=== PATIENT | female | born 1950 | race Two or more races ===

== ENCOUNTER 2020-11-19 11:55 | Inpatient (IN) | payer OTHER ==
[~2020-11-19] VITALS: Ht 167.6 cm; Wt 66.6 kg
[2020-11-19] MEDS ORDERED: SODIUM CHLORIDE 0.9% 1,000 ML IVB ONE (12:45)
[2020-11-19] MEDS ORDERED: ONDANSETRON HCL 4 MG/2 ML VIAL IV ONE (12:45)
[2020-11-19] MEDS ORDERED: MORPHINE SULF INJ 2 MG/ML SYRINGE 1ML IV ONE (12:45)
[2020-11-19 13:18] LABS: Hematocrit 40.6 % (36.0-46.0); Hemoglobin 13.4 g/dL (12.2-16.2); Mean Corpuscular Hemoglobin 28.4 pg (28.0-32.0); Mean Corpuscular Hgb Conc. 33.1 g/dL (32.0-36.0); Mean Corpuscular Volume 85.8 fL (80.0-100.0); Platelet Count (auto) 275 10^3/uL (140-450); Red Blood Cells 4.73 10^6/uL (4.0-5.20); Red Cell Distribution Width 15.8 % (11.8-14.3); White Blood Cell 28.6 10^3/uL (4.4-10.8)
[2020-11-19 13:35] LABS: Basophils % (manual) 0 (0.0-2.0); Blast Cells 0; Eosinophils % (manual) 0 (0-7); Metamyelocytes % 0; Monocytes % (manual) 0 (0-12); Myelocytes % 0; Promyelocytes % 0; Reactive Lymphocytes 0
[2020-11-19 13:38] LABS: Albumin 3.4 g/dL (3.4-5.0); Potassium 3.3 mmol/L (3.5-5.1)
[2020-11-19 13:39] LABS: Magnesium 1.3 mg/dL (1.6-2.6)
[2020-11-19 13:41] LABS: BUN/Creatinine Ratio 17.1; Bilirubin, Total 1.8 mg/dL (0.2-1.0); Total Protein 8.2 g/dL (6.4-8.2)
[2020-11-19] MEDS ORDERED: cefTRIAXone 1GM/50ML D5W 50 ML IV ONE (14:15)
[2020-11-19 14:31] LABS: Band Neutrophils % (manual) 7; Lymphocytes % (manual) 10 (10.0-50.0)
[2020-11-19 15:01] LABS: INR 1.1 (0.9-1.15); Partial Thromboplastin Time 31.9 sec (23.0-31.2)
[2020-11-19 15:51] LABS: Lactic Acid w/Reflex 3.1 mmol/L (0.4-2.0)
[2020-11-19] MEDS ORDERED: NITROGLYCERIN 0.4 MG SL TAB SL PRN (16:15)
[2020-11-19] MEDS ORDERED: hydrALAZINE HCL 20 MG/ML VL IV PRN (16:15)
[2020-11-19] MEDS ORDERED: MORPHINE SULF INJ 2 MG/ML SYRINGE 1ML IV PRN (16:15)
[2020-11-19] MEDS: D5W/ SOD CHL 0.9%/KCL 20MEQ 1,000 ML IV SCH (17:15)
[2020-11-19] MEDS: MAGNESIUM SULFATE 1GM/100ML 100 ML IV SCH ×2 (17:15→20:11)
[2020-11-19] MEDS ORDERED: MAGNESIUM SULFATE 1GM/100ML 100 ML IV ONE (20:11)
[2020-11-19] MEDS: PIPERACILLIN-TAZOB 3.375GM 100 ML IV SCH (20:12)
[2020-11-19] MEDS: BUDESONIDE (INHALATION) 0.5 MG/2 ML NEB NEB SCH (22:00)
[2020-11-19] MEDS: MORPHINE SULF INJ 2 MG/ML SYRINGE 1ML IV PRN (22:40)
[2020-11-19] MEDS: ONDANSETRON HCL 4 MG/2 ML VIAL IV PRN (22:40)
[2020-11-20] MEDS: PIPERACILLIN-TAZOB 3.375GM 100 ML IV SCH ×3 (00:51→09:00)
[2020-11-20] MEDS: D5W/ SOD CHL 0.9%/KCL 20MEQ 1,000 ML IV SCH ×3 (04:21→15:27)
[2020-11-20] MEDS ORDERED: ALBUMIN 5% 50 ML IV ONE (05:00)
[2020-11-20 06:20] LABS: Mean Corpuscular Hgb Conc. 33.2 g/dL (32.0-36.0)
[2020-11-20 06:23] LABS: Hematocrit 37.9 % (36.0-46.0); Hemoglobin 12.6 g/dL (12.2-16.2); Mean Corpuscular Hemoglobin 28.8 pg (28.0-32.0); Mean Corpuscular Volume 86.6 fL (80.0-100.0); Platelet Count (auto) 235 10^3/uL (140-450); Red Blood Cells 4.38 10^6/uL (4.0-5.20); Red Cell Distribution Width 15.9 % (11.8-14.3)
[2020-11-20 06:40] LABS: Basophils % (manual) 0 (0.0-2.0); Blast Cells 0; Eosinophils % (manual) 0 (0-7); Metamyelocytes % 0; Myelocytes % 0; Potassium 3.2 mmol/L (3.5-5.1); Promyelocytes % 0; Reactive Lymphocytes 0
[2020-11-20 06:52] LABS: Albumin 2.9 g/dL (3.4-5.0); BUN/Creatinine Ratio 21.2; Bilirubin, Total 2.4 mg/dL (0.2-1.0); Calcium 8.3 mg/dL (8.5-10.1); Total Protein 7.3 g/dL (6.4-8.2)
[2020-11-20] MEDS ORDERED: NOREPINEPHRINE 8 MG/250ML KIT 250 ML IV ONE (07:46)
[2020-11-20] MEDS ORDERED: SODIUM CHLORIDE 0.9% 1,000 ML IV ONE (08:15)
[2020-11-20 08:21] LABS: Band Neutrophils % (manual) 1; Lymphocytes % (manual) 4 (10.0-50.0); Monocytes % (manual) 7 (0-12)
[2020-11-20] MEDS ORDERED: LACTATED RINGER'S 1,000 ML IV ONE (09:00)
[2020-11-20] MEDS: NOREPINEPHRINE 8 MG/250ML KIT 250 ML IV SCH (09:52)
[2020-11-20] MEDS ORDERED: POTASSIUM CHLORIDE 40 MEQ, LIDOCAINE 1% (LOCAL ANESTH.) 4 ML in SODIUM CHL 0.9% 250 ML IV ONE (10:15)
[2020-11-20] MEDS ORDERED: metroNIDAZOLE 500MG/100ML 100 ML IV ONE (10:15)
[2020-11-20] MEDS: PANTOPRAZOLE 40 MG/10 ML VIAL INJ IV SCH (10:39)
[2020-11-20] MEDS: metroNIDAZOLE 500MG/100ML 100 ML IV SCH ×2 (14:00→23:11)
[2020-11-20] MEDS: MORPHINE SULF INJ 2 MG/ML SYRINGE 1ML IV PRN ×2 (15:33→18:44)
[2020-11-20 19:12] LABS: BUN/Creatinine Ratio 21.1; Calcium 7.5 mg/dL (8.5-10.1); Magnesium 1.8 mg/dL (1.6-2.6); Potassium 4.3 mmol/L (3.5-5.1)
[2020-11-20] MEDS: ACETAMINOPHEN 500 MG TAB PO PRN (22:20)
[2020-11-21] VITALS (17 sets, daily range): BP systolic 89–149; BP diastolic 44–65
[2020-11-21] MEDS: CEFEPIME 2 GM in SODIUM CHL 0.9% 50 ML IV SCH ×3 (00:25→21:55)
[2020-11-21] MEDS: MORPHINE SULF INJ 2 MG/ML SYRINGE 1ML IV PRN ×2 (02:24→09:57)
[2020-11-21] MEDS: metroNIDAZOLE 500MG/100ML 100 ML IV SCH ×3 (07:45→21:47)
[2020-11-21] MEDS: NOREPINEPHRINE 8 MG/250ML KIT 250 ML IV SCH (09:00)
[2020-11-21] MEDS: PANTOPRAZOLE 40 MG/10 ML VIAL INJ IV SCH (09:57)
[2020-11-21] MEDS: D5W/ SOD CHL 0.9%/KCL 20MEQ 1,000 ML IV SCH ×2 (10:40→19:18)
[2020-11-21] MEDS: BUDESONIDE (INHALATION) 0.5 MG/2 ML NEB NEB SCH ×3 (11:25→22:00)
[2020-11-21 11:46] LABS: Hematocrit 32.4 % (36.0-46.0); Hemoglobin 10.5 g/dL (12.2-16.2); Mean Corpuscular Hemoglobin 28.3 pg (28.0-32.0); Mean Corpuscular Hgb Conc. 32.5 g/dL (32.0-36.0); Mean Corpuscular Volume 87.3 fL (80.0-100.0); Platelet Count (auto) 226 10^3/uL (140-450); Red Blood Cells 3.71 10^6/uL (4.0-5.20)
[2020-11-21 11:56] LABS: White Blood Cell 32.3 10^3/uL (4.4-10.8)
[2020-11-21 11:57] LABS: Basophils % (manual) 0 (0.0-2.0); Blast Cells 0; Metamyelocytes % 0; Myelocytes % 0; Promyelocytes % 0; Reactive Lymphocytes 0
[2020-11-21] MEDS ORDERED: SODIUM CHLORIDE 0.9% 1,000 ML IV SCH (12:00)
[2020-11-21] MEDS ORDERED: ONDANSETRON HCL 4 MG/2 ML VIAL ONE (12:10)
[2020-11-21] MEDS ORDERED: fentaNYL CITRATE 100 MCG/2 ML VL ONE ×3 (12:10→14:06)
[2020-11-21] MEDS ORDERED: PROPOFOL 10 MG/ML 20 ML IV ONE (12:10)
[2020-11-21] MEDS ORDERED: ROCURONIUM 10MG/ML 10ML VIAL IV ONE (12:10)
[2020-11-21] MEDS ORDERED: GLYCOPYRROLATE 0.2 MG/ML 1ML VIAL ONE (12:10)
[2020-11-21] MEDS ORDERED: ETOMIDATE (2MG/ML) 20ML VIAL IV ONE (12:10)
[2020-11-21] MEDS ORDERED: SODIUM CHLORIDE LOCK 10 ML ONE (12:10)
[2020-11-21] MEDS ORDERED: MIDAZOLAM HCL 1MG/1ML-2 ML VIAL ONE (12:10)
[2020-11-21] MEDS ORDERED: NEOSTIGMINE 1 MG/ML INJ (10mg/10ML VIAL) ONE (12:10)
[2020-11-21 12:12] LABS: Calcium 8.2 mg/dL (8.5-10.1); Magnesium 1.9 mg/dL (1.6-2.6); Potassium 3.8 mmol/L (3.5-5.1)
[2020-11-21 12:19] LABS: Albumin 2.3 g/dL (3.4-5.0); Bilirubin, Total 1.4 mg/dL (0.2-1.0); Total Protein 6.6 g/dL (6.4-8.2)
[2020-11-21] MEDS ORDERED: HYDROmorphone HCL 2 MG/ML VL ONE (12:58)
[2020-11-21] MEDS ORDERED: EPINEPHrine HCL 1 MG/1 ML AMP ONE (13:14)
[2020-11-21] MEDS ORDERED: HEPARIN 1,000 UNITS/ml 1ML VIAL ONE (14:01)
[2020-11-21 14:16] LABS: Band Neutrophils % (manual) 3; Eosinophils % (manual) 4 (0-7); Lymphocytes % (manual) 4 (10.0-50.0); Monocytes % (manual) 3 (0-12)
[2020-11-21] MEDS ORDERED: BUPIVACAINE 0.5% P/F INJ 10 ML VIAL ONE (14:54)
[2020-11-21] MEDS ORDERED: MIDAZOLAM DRIP 50 mg/50mL 50 ML IV ONE (15:12)
[2020-11-21] MEDS: MIDAZOLAM DRIP 50 mg/50mL 50 ML IV SCH ×2 (15:15→22:59)
[2020-11-21] MEDS ORDERED: ONDANSETRON HCL 4 MG/2 ML VIAL IV PRN (15:45)
[2020-11-21] MEDS ORDERED: MORPHINE SULF INJ 2 MG/ML SYRINGE 1ML IV PRN (15:45)
[2020-11-21] MEDS ORDERED: HYDROmorphone HCL 2 MG/ML VL IV PRN (15:45)
[2020-11-21] MEDS ORDERED: metroNIDAZOLE 500MG/100ML 100 ML IV ONE (16:31)
[2020-11-21] MEDS: ALBUTEROL SULF 2.5 MG/0.5ML(0.5%) NEB SOLN NEB SCH ×2 (18:00→23:39)
[2020-11-21] MEDS: fentaNYL Drip 2500mCg/250mlNS 250 ML IV SCH (18:53)
[2020-11-22] VITALS (89 sets, daily range): BP systolic 73–145; BP diastolic 48–84
[2020-11-22] MEDS: D5W/ SOD CHL 0.9%/KCL 20MEQ 1,000 ML IV SCH ×2 (05:11→13:21)
[2020-11-22] MEDS: NOREPINEPHRINE 8 MG/250ML KIT 250 ML IV SCH (05:33)
[2020-11-22] MEDS: metroNIDAZOLE 500MG/100ML 100 ML IV SCH ×3 (05:33→21:44)
[2020-11-22] MEDS: ALBUTEROL SULF 2.5 MG/0.5ML(0.5%) NEB SOLN NEB SCH ×3 (06:00→18:07)
[2020-11-22 07:13] LABS: Hematocrit 30.1 % (36.0-46.0); Hemoglobin 9.8 g/dL (12.2-16.2); Mean Corpuscular Hemoglobin 28.8 pg (28.0-32.0); Mean Corpuscular Hgb Conc. 32.7 g/dL (32.0-36.0); Mean Corpuscular Volume 87.9 fL (80.0-100.0); Platelet Count (auto) 261 10^3/uL (140-450); Red Blood Cells 3.42 10^6/uL (4.0-5.20); Red Cell Distribution Width 15.5 % (11.8-14.3); White Blood Cell 25.4 10^3/uL (4.4-10.8)
[2020-11-22 07:26] LABS: Band Neutrophils % (manual) 0; Basophils % (manual) 0 (0.0-2.0); Blast Cells 0; Eosinophils % (manual) 0 (0-7); Metamyelocytes % 0; Myelocytes % 0; Promyelocytes % 0; Reactive Lymphocytes 0
[2020-11-22] MEDS: MIDAZOLAM DRIP 50 mg/50mL 50 ML IV SCH (07:49)
[2020-11-22 08:23] LABS: Lymphocytes % (manual) 5 (10.0-50.0); Monocytes % (manual) 11 (0-12)
[2020-11-22] MEDS: fentaNYL Drip 2500mCg/250mlNS 250 ML IV SCH (08:28)
[2020-11-22 08:30] LABS: Albumin 1.9 g/dL (3.4-5.0); Calcium 7.3 mg/dL (8.5-10.1); Potassium 3.8 mmol/L (3.5-5.1)
[2020-11-22 08:33] LABS: BUN/Creatinine Ratio 24.1; Bilirubin, Total 1.1 mg/dL (0.2-1.0); Total Protein 5.7 g/dL (6.4-8.2)
[2020-11-22] MEDS: BUDESONIDE (INHALATION) 0.5 MG/2 ML NEB NEB SCH ×2 (09:08→18:07)
[2020-11-22] MEDS: PANTOPRAZOLE 40 MG/10 ML VIAL INJ IV SCH (09:17)
[2020-11-22] MEDS: CEFEPIME 2 GM in SODIUM CHL 0.9% 50 ML IV SCH ×2 (09:17→21:44)
[2020-11-22] MEDS ORDERED: FUROSEMIDE 40 MG/4 ML VIAL IV ONE (12:45)
[2020-11-23] VITALS (59 sets, daily range): BP systolic 0–138; BP diastolic 0–109
[2020-11-23] MEDS: D5W/ SOD CHL 0.9%/KCL 20MEQ 1,000 ML IV SCH ×3 (00:02→13:00)
[2020-11-23] MEDS: ALBUTEROL SULF 2.5 MG/0.5ML(0.5%) NEB SOLN NEB SCH ×4 (01:45→18:00)
[2020-11-23] MEDS: metroNIDAZOLE 500MG/100ML 100 ML IV SCH ×3 (05:30→22:00)
[2020-11-23] MEDS: BUDESONIDE (INHALATION) 0.5 MG/2 ML NEB NEB SCH ×2 (10:00→20:28)
[2020-11-23] MEDS: PANTOPRAZOLE 40 MG/10 ML VIAL INJ IV SCH (10:00)
[2020-11-23] MEDS: CEFEPIME 2 GM in SODIUM CHL 0.9% 50 ML IV SCH ×2 (10:00→22:00)
[2020-11-23 11:24] LABS: Basophils # (auto) 0.1 10 ^3/uL (0-0.2); Basophils % (auto) 0.4 % (0.0-2.0); Eosinophils # (auto) 0.3 10 ^3/uL (0-0.8); Eosinophils % (auto) 1.9 % (0.0-7.0); Hematocrit 29.9 % (36.0-46.0); Hemoglobin 9.6 g/dL (12.2-16.2); Lymphocytes # (auto) 0.8 10 ^3/uL (0.4-5.4); Lymphocytes % (auto) 4.8 % (10.0-50.0); Mean Corpuscular Hemoglobin 28.4 pg (28.0-32.0); Mean Corpuscular Hgb Conc. 32.2 g/dL (32.0-36.0); Mean Corpuscular Volume 88.4 fL (80.0-100.0); Monocytes # (auto) 1.7 10 ^3/uL (0-1.3); Neutrophils # (auto) 14.4 10 ^3/uL (1.6-8.6); Neutrophils % (auto) 82.9 % (37.0-80.0); Platelet Count (auto) 242 10^3/uL (140-450); Red Blood Cells 3.38 10^6/uL (4.0-5.20); Red Cell Distribution Width 15.3 % (11.8-14.3); White Blood Cell 17.4 10^3/uL (4.4-10.8)
[2020-11-23 11:37] LABS: BUN/Creatinine Ratio 24.1; Calcium 8.2 mg/dL (8.5-10.1); Potassium 4.3 mmol/L (3.5-5.1)
[2020-11-23] MEDS ORDERED: HYDROcodone-ACET 5/325MG TAB PO PRN (13:00)
[2020-11-23] MEDS: MORPHINE SULF INJ 2 MG/ML SYRINGE 1ML IV PRN ×3 (16:47→22:35)
[2020-11-23] MEDS: ONDANSETRON HCL 4 MG/2 ML VIAL IV PRN (22:36)
[2020-11-24] VITALS (21 sets, daily range): BP systolic 87–145; BP diastolic 52–89
[2020-11-24] MEDS: ALBUTEROL SULF 2.5 MG/0.5ML(0.5%) NEB SOLN NEB SCH ×4 (00:01→23:55)
[2020-11-24] MEDS: D5W/ SOD CHL 0.9%/KCL 20MEQ 1,000 ML IV SCH (02:38)
[2020-11-24 03:39] LABS: Basophils # (auto) 0 10 ^3/uL (0-0.2); Basophils % (auto) 0.2 % (0.0-2.0); Eosinophils # (auto) 0.7 10 ^3/uL (0-0.8); Eosinophils % (auto) 4.4 % (0.0-7.0); Hematocrit 28.7 % (36.0-46.0); Hemoglobin 9.4 g/dL (12.2-16.2); Lymphocytes % (auto) 6.4 % (10.0-50.0); Mean Corpuscular Hemoglobin 28.8 pg (28.0-32.0); Mean Corpuscular Hgb Conc. 32.7 g/dL (32.0-36.0); Monocytes # (auto) 1.6 10 ^3/uL (0-1.3); Monocytes % (auto) 10.5 % (0.0-12.0); Neutrophils # (auto) 11.7 10 ^3/uL (1.6-8.6); Neutrophils % (auto) 78.5 % (37.0-80.0); Platelet Count (auto) 247 10^3/uL (140-450); Red Blood Cells 3.26 10^6/uL (4.0-5.20); Red Cell Distribution Width 15.7 % (11.8-14.3); White Blood Cell 14.9 10^3/uL (4.4-10.8)
[2020-11-24] MEDS: MORPHINE SULF INJ 2 MG/ML SYRINGE 1ML IV PRN ×4 (03:49→23:41)
[2020-11-24 03:56] LABS: BUN/Creatinine Ratio 30.4; Calcium 8.7 mg/dL (8.5-10.1); Potassium 3.9 mmol/L (3.5-5.1)
[2020-11-24] MEDS: metroNIDAZOLE 500MG/100ML 100 ML IV SCH ×3 (06:04→22:07)
[2020-11-24] MEDS: BUDESONIDE (INHALATION) 0.5 MG/2 ML NEB NEB SCH ×2 (06:36→18:31)
[2020-11-24] MEDS: PANTOPRAZOLE 40 MG/10 ML VIAL INJ IV SCH (09:59)
[2020-11-24] MEDS: CEFEPIME 2 GM in SODIUM CHL 0.9% 50 ML IV SCH ×2 (09:59→22:07)
[2020-11-24] MEDS: D5W/SOD CHL 0.45%/KCL 20MEQ 1,000 ML IV SCH (14:24)
[2020-11-24] MEDS: ONDANSETRON HCL 4 MG/2 ML VIAL IV PRN (23:41)
[2020-11-25] VITALS (17 sets, daily range): BP systolic 108–152; BP diastolic 62–96
[2020-11-25] MEDS: MORPHINE SULF INJ 2 MG/ML SYRINGE 1ML IV PRN ×3 (05:25→18:24)
[2020-11-25] MEDS: metroNIDAZOLE 500MG/100ML 100 ML IV SCH ×3 (05:25→21:19)
[2020-11-25 05:54] LABS: Basophils # (auto) 0 10 ^3/uL (0-0.2); Basophils % (auto) 0.3 % (0.0-2.0); Eosinophils # (auto) 0.8 10 ^3/uL (0-0.8); Eosinophils % (auto) 5.7 % (0.0-7.0); Hematocrit 27.9 % (36.0-46.0); Hemoglobin 8.9 g/dL (12.2-16.2); Lymphocytes # (auto) 0.5 10 ^3/uL (0.4-5.4); Lymphocytes % (auto) 3.8 % (10.0-50.0); Mean Corpuscular Hemoglobin 28.1 pg (28.0-32.0); Mean Corpuscular Hgb Conc. 31.8 g/dL (32.0-36.0); Mean Corpuscular Volume 88.3 fL (80.0-100.0); Monocytes # (auto) 1.2 10 ^3/uL (0-1.3); Monocytes % (auto) 8.8 % (0.0-12.0); Neutrophils # (auto) 10.8 10 ^3/uL (1.6-8.6); Neutrophils % (auto) 81.4 % (37.0-80.0); Platelet Count (auto) 245 10^3/uL (140-450); Red Blood Cells 3.16 10^6/uL (4.0-5.20); White Blood Cell 13.3 10^3/uL (4.4-10.8)
[2020-11-25 06:04] LABS: Albumin 1.9 g/dL (3.4-5.0); Calcium 8.6 mg/dL (8.5-10.1); Potassium 3.9 mmol/L (3.5-5.1)
[2020-11-25 06:07] LABS: BUN/Creatinine Ratio 35.6; Bilirubin, Total 0.4 mg/dL (0.2-1.0); Total Protein 5.8 g/dL (6.4-8.2)
[2020-11-25] MEDS: ALBUTEROL SULF 2.5 MG/0.5ML(0.5%) NEB SOLN NEB SCH ×4 (06:35→23:59)
[2020-11-25] MEDS: BUDESONIDE (INHALATION) 0.5 MG/2 ML NEB NEB SCH ×2 (06:35→18:31)
[2020-11-25] MEDS: PANTOPRAZOLE 40 MG/10 ML VIAL INJ IV SCH (09:31)
[2020-11-25] MEDS: D5W/SOD CHL 0.45%/KCL 20MEQ 1,000 ML IV SCH ×2 (09:31→16:25)
[2020-11-25] MEDS: CEFEPIME 2 GM in SODIUM CHL 0.9% 50 ML IV SCH ×2 (09:31→22:30)
[2020-11-26 05:00] VITALS: BP 132/78
[2020-11-26 06:00] VITALS: BP 131/77
[2020-11-26] MEDS: metroNIDAZOLE 500MG/100ML 100 ML IV SCH ×3 (06:15→22:00)
[2020-11-26] MEDS: ALBUTEROL SULF 2.5 MG/0.5ML(0.5%) NEB SOLN NEB SCH ×4 (06:50→23:35)
[2020-11-26] MEDS: BUDESONIDE (INHALATION) 0.5 MG/2 ML NEB NEB SCH ×2 (06:50→18:20)
[2020-11-26 07:43] LABS: Basophils # (auto) 0 10 ^3/uL (0-0.2); Basophils % (auto) 0.4 % (0.0-2.0); Eosinophils # (auto) 0.8 10 ^3/uL (0-0.8); Eosinophils % (auto) 6.6 % (0.0-7.0); Hematocrit 32.6 % (36.0-46.0); Hemoglobin 10.3 g/dL (12.2-16.2); Lymphocytes # (auto) 0.7 10 ^3/uL (0.4-5.4); Lymphocytes % (auto) 5.6 % (10.0-50.0); Mean Corpuscular Hemoglobin 27.9 pg (28.0-32.0); Mean Corpuscular Hgb Conc. 31.6 g/dL (32.0-36.0); Mean Corpuscular Volume 88.2 fL (80.0-100.0); Monocytes # (auto) 1.4 10 ^3/uL (0-1.3); Monocytes % (auto) 12.1 % (0.0-12.0); Neutrophils # (auto) 8.7 10 ^3/uL (1.6-8.6); Neutrophils % (auto) 75.3 % (37.0-80.0); Nucleated Red Blood Cells % 0.1 %; Platelet Count (auto) 273 10^3/uL (140-450); Red Cell Distribution Width 15.6 % (11.8-14.3); White Blood Cell 11.6 10^3/uL (4.4-10.8)
[2020-11-26 07:51] LABS: Albumin 2.4 g/dL (3.4-5.0); Calcium 9.1 mg/dL (8.5-10.1); Potassium 3.5 mmol/L (3.5-5.1)
[2020-11-26 07:53] LABS: BUN/Creatinine Ratio 28.6
[2020-11-26 07:56] LABS: Bilirubin, Total 0.4 mg/dL (0.2-1.0); Total Protein 6.4 g/dL (6.4-8.2)
[2020-11-26] MEDS: CEFEPIME 2 GM in SODIUM CHL 0.9% 50 ML IV SCH ×2 (09:21→22:00)
[2020-11-26] MEDS: PANTOPRAZOLE 40 MG/10 ML VIAL INJ IV SCH (09:22)
[2020-11-26] MEDS: D5W/SOD CHL 0.45%/KCL 20MEQ 1,000 ML IV SCH ×2 (09:28→18:56)
[2020-11-26 15:49] VITALS: BP 121/67
[2020-11-26 22:00] VITALS: BP 130/72
[2020-11-27 05:00] VITALS: BP 148/81
[2020-11-27] MEDS: metroNIDAZOLE 500MG/100ML 100 ML IV SCH ×3 (06:30→20:59)
[2020-11-27] MEDS: ALBUTEROL SULF 2.5 MG/0.5ML(0.5%) NEB SOLN NEB SCH ×4 (06:42→23:51)
[2020-11-27] MEDS: BUDESONIDE (INHALATION) 0.5 MG/2 ML NEB NEB SCH (06:42)
[2020-11-27 07:25] LABS: Basophils # (auto) 0 10 ^3/uL (0-0.2); Basophils % (auto) 0.4 % (0.0-2.0); Eosinophils # (auto) 0.5 10 ^3/uL (0-0.8); Eosinophils % (auto) 4.3 % (0.0-7.0); Hematocrit 32.4 % (36.0-46.0); Hemoglobin 10.3 g/dL (12.2-16.2); Lymphocytes # (auto) 0.8 10 ^3/uL (0.4-5.4); Lymphocytes % (auto) 6.8 % (10.0-50.0); Mean Corpuscular Hemoglobin 27.9 pg (28.0-32.0); Mean Corpuscular Volume 87.3 fL (80.0-100.0); Monocytes # (auto) 1.3 10 ^3/uL (0-1.3); Monocytes % (auto) 11.2 % (0.0-12.0); Neutrophils # (auto) 8.9 10 ^3/uL (1.6-8.6); Neutrophils % (auto) 77.3 % (37.0-80.0); Platelet Count (auto) 243 10^3/uL (140-450); Red Blood Cells 3.71 10^6/uL (4.0-5.20); Red Cell Distribution Width 15.3 % (11.8-14.3); White Blood Cell 11.5 10^3/uL (4.4-10.8)
[2020-11-27 07:37] LABS: Calcium 8.5 mg/dL (8.5-10.1)
[2020-11-27 07:43] LABS: Albumin 2.2 g/dL (3.4-5.0); BUN/Creatinine Ratio 24.3; Bilirubin, Total 0.4 mg/dL (0.2-1.0); Total Protein 6.3 g/dL (6.4-8.2)
[2020-11-27] MEDS: D5W/SOD CHL 0.45%/KCL 20MEQ 1,000 ML IV SCH (08:23)
[2020-11-27] MEDS: CEFEPIME 2 GM in SODIUM CHL 0.9% 50 ML IV SCH (09:51)
[2020-11-27] MEDS: PANTOPRAZOLE 40 MG/10 ML VIAL INJ IV SCH (09:51)
[2020-11-27 10:06] VITALS: BP 148/72
[2020-11-27] MEDS ORDERED: FUROSEMIDE 40 MG/4 ML VIAL IV ONE (12:15)
[2020-11-27] MEDS ORDERED: POTASSIUM CHL 20 Meq TABLET PO ONE (12:15)
[2020-11-27 17:04] VITALS: BP 167/71
[2020-11-27 18:35] VITALS: BP 148/83
[2020-11-27] MEDS: POTASSIUM CHL 20 Meq TABLET PO SCH (20:59)
[2020-11-27 22:00] VITALS: BP 142/84
[2020-11-28] MEDS: MORPHINE SULF INJ 2 MG/ML SYRINGE 1ML IV PRN (02:02)
[2020-11-28] MEDS: ONDANSETRON HCL 4 MG/2 ML VIAL IV PRN (02:03)
[2020-11-28 05:00] VITALS: BP 138/69
[2020-11-28] MEDS: metroNIDAZOLE 500MG/100ML 100 ML IV SCH ×2 (05:51→14:00)
[2020-11-28 07:25] LABS: Basophils # (auto) 0.1 10 ^3/uL (0-0.2); Basophils % (auto) 0.5 % (0.0-2.0); Eosinophils # (auto) 0.1 10 ^3/uL (0-0.8); Eosinophils % (auto) 0.8 % (0.0-7.0); Hematocrit 30.7 % (36.0-46.0); Hemoglobin 10.1 g/dL (12.2-16.2); Lymphocytes # (auto) 0.9 10 ^3/uL (0.4-5.4); Lymphocytes % (auto) 8.4 % (10.0-50.0); Mean Corpuscular Hemoglobin 28.6 pg (28.0-32.0); Mean Corpuscular Hgb Conc. 33.1 g/dL (32.0-36.0); Mean Corpuscular Volume 86.6 fL (80.0-100.0); Monocytes # (auto) 1.5 10 ^3/uL (0-1.3); Monocytes % (auto) 13.8 % (0.0-12.0); Neutrophils # (auto) 8.1 10 ^3/uL (1.6-8.6); Neutrophils % (auto) 76.5 % (37.0-80.0); Platelet Count (auto) 227 10^3/uL (140-450); Red Blood Cells 3.55 10^6/uL (4.0-5.20); Red Cell Distribution Width 15.5 % (11.8-14.3); White Blood Cell 10.6 10^3/uL (4.4-10.8)
[2020-11-28 07:46] LABS: Potassium 3.2 mmol/L (3.5-5.1)
[2020-11-28 07:58] LABS: BUN/Creatinine Ratio 21.2; Calcium 7.9 mg/dL (8.5-10.1)
[2020-11-28 08:00] VITALS: BP 126/70
[2020-11-28] MEDS ORDERED: cefTRIAXone 1GM/50ML D5W 50 ML IV SCH (09:00)
[2020-11-28] MEDS: POTASSIUM CHL 20 Meq TABLET PO SCH (09:34)
[2020-11-28] MEDS ORDERED: PANTOPRAZOLE 40 MG TAB PO SCH (10:00)
[2020-11-28] MEDS: ACETAMINOPHEN 500 MG TAB PO PRN (13:58)
[2020-11-28] MEDS ORDERED: CEPH250C PO (14:16)
[2020-11-28] MEDS ORDERED: METR500T PO (14:16)
[2020-11-28] MEDS ORDERED: POTA-220 PO (14:16)
[2020-11-28] MEDS ORDERED: ONDA-144 PO (14:16)
[2020-11-28] MEDS ORDERED: ALBUAER3 IN (14:16)
[2020-11-28] MEDS ORDERED: FURO20TA3 PO (14:23)
[2020-11-28 16:21] VITALS: BP 154/77
[2020-11-28 16:46] VITALS: BP 156/91
== END 2020-11-28 18:52 | disposition home health service (06) | DRG 853 ==
LOC: ER 11:55 → TELE 11:56 → CATH ICU 11-21 20:45 → TELE-CENTR 11-25 16:20
PROVIDERS: ADMIT Nurse Practitioner Acute Care; ATTEND Internal Medicine
PROC: 02HV33Z Insertion of Infusion Device into Superior Vena Cava, Percutaneous Approach (ICD-10-PCS; 2020-11-20)
PROC: B548ZZA Ultrasonography of Superior Vena Cava, Guidance (ICD-10-PCS; 2020-11-20)
PROC: 05HD33Z Insertion of Infusion Device into Right Cephalic Vein, Percutaneous Approach (ICD-10-PCS; 2020-11-20)
PROC: B54MZZA Ultrasonography of Right Upper Extremity Veins, Guidance (ICD-10-PCS; 2020-11-20)
PROC: 5A1945Z Respiratory Ventilation, 24-96 Consecutive Hours (ICD-10-PCS; 2020-11-21)
PROC: 0BH17EZ Insertion of Endotracheal Airway into Trachea, Via Natural or Artificial Opening (ICD-10-PCS; 2020-11-21)
PROC: 3E013GC Introduction of Other Therapeutic Substance into Subcutaneous Tissue, Percutaneous Approach (ICD-10-PCS; 2020-11-21)
PROC: 0FT44ZZ Resection of Gallbladder, Percutaneous Endoscopic Approach (ICD-10-PCS; principal; 2020-11-21 13:14)
DX: A41.9 Sepsis, unspecified organism (principal); N17.0 Acute kidney failure with tubular necrosis; R65.21 Severe sepsis with septic shock; J96.01 Acute respiratory failure with hypoxia; I50.33 Acute on chronic diastolic (congestive) heart failure; K80.00 Calculus of gallbladder with acute cholecystitis without obstruction; E87.1 Hypo-osmolality and hyponatremia; J98.11 Atelectasis; E87.0 Hyperosmolality and hypernatremia; E44.0 Moderate protein-calorie malnutrition; Z68.41 Body mass index [BMI] 40.0-44.9, adult; I13.0 Hypertensive heart and chronic kidney disease with heart failure and stage 1 through stage 4 chronic kidney disease, or unspecified chronic kidney disease; E83.42 Hypomagnesemia; J45.909 Unspecified asthma, uncomplicated; K76.0 Fatty (change of) liver, not elsewhere classified; E78.5 Hyperlipidemia, unspecified; E87.6 Hypokalemia; K57.30 Diverticulosis of large intestine without perforation or abscess without bleeding; Z20.822 Contact with and (suspected) exposure to COVID-19; E66.01 Morbid (severe) obesity due to excess calories; F03.90 Unspecified dementia, unspecified severity, without behavioral disturbance, psychotic disturbance, mood disturbance, and anxiety; N18.9 Chronic kidney disease, unspecified; Z82.49 Family history of ischemic heart disease and other diseases of the circulatory system; Z87.891 Personal history of nicotine dependence; M54.5 Low back pain
CPT/HCPCS: 36415; 36600; 71045; 74176; 76705; 80048; 80053; 80061; 82150; 82247; 82805; 83605; 83690; 83735; 84484; 85007; 85025; 85027; 85610; 85730; 86850; 86900; 86901; 87040; 87070; 87075; 87081; 87205; 87426; 93005; 93306; 94002; 94003; 94640; 96361; 96365; 97110; 97116; 97163; 97530; 99291; A4565; C9113; G0378; J0171; J0696; J2001; J2250; J2405; J2543; J2704; J3490